=== PATIENT | female | born 2000 | race Caucasian/White ===

== ENCOUNTER 2022-09-25 18:25 | Emergency (ER) | payer OTHER ==
[2022-09-25 18:49] VITALS: BP 137/83; PULSE 73; RESP 20; TEMP 98.1; BMI 25.7
[2022-09-25] MEDS ORDERED: ACETAMINOPHEN 500 MG TABLET (FP) PO ONE (19:01)
[2022-09-25] MEDS ORDERED: predniSONE 20 MG TABLET (UD) PO ONE (19:01)
[2022-09-25] MEDS ORDERED: predniSONE 20 MG TABLET (UD) ONE (19:06)
[2022-09-25] MEDS ORDERED: ACETAMINOPHEN 500 MG TABLET (FP) ONE (19:06)
== END 2022-09-25 19:47 | disposition home or self-care (01) ==
LOC: JERFT 18:25
DX: H93.13 Tinnitus, bilateral (principal)
CPT/HCPCS: 99283-25